=== PATIENT | male | born 1955 | race Hispanic/Latino ===

== ENCOUNTER 2017-11-28 07:02 | Day surgery (SDC) | payer BC ==
[2017-11-20 16:08] VITALS: BMI 35.2
[2017-11-28] MEDS ORDERED: Lidocaine 1% Inj (20ml) ONE (08:37)
[2017-11-28] MEDS ORDERED: ePHEDrine 50 mg/ml Inj ONE (08:37)
[2017-11-28] MEDS ORDERED: Propofol 10 mg/ml Inj (20 ML) ONE ×2 (08:37→08:57)
[2017-11-28] MEDS ORDERED: Benzocaine/Butamben/Tetracai 14-2-2% TOP Spray TOP ONE (08:41)
[2017-11-28] MEDS ORDERED: Sodium Chloride 0.9% 1,000 ML IV SCH (08:45)
[2017-11-28 10:31] VITALS: RESP 15
[2017-11-28 10:53] VITALS: BP 137/73; PULSE 62; TEMP 96.6; O2SAT 97
== END 2017-11-28 11:20 | disposition home or self-care (01) ==
LOC: ENDO 07:02
PROVIDERS: ATTEND Internal Medicine
DX: K22.70 Barrett's esophagus without dysplasia (principal); K21.0 Gastro-esophageal reflux disease with esophagitis; K44.9 Diaphragmatic hernia without obstruction or gangrene; K29.70 Gastritis, unspecified, without bleeding; D12.3 Benign neoplasm of transverse colon; D12.4 Benign neoplasm of descending colon; K55.20 Angiodysplasia of colon without hemorrhage; K57.30 Diverticulosis of large intestine without perforation or abscess without bleeding; K64.8 Other hemorrhoids; R13.10 Dysphagia, unspecified
CPT/HCPCS: 43239; 45380; 45381; 45385; 88305; 88312; J2704; J7040 ×2